=== PATIENT | female | born 1995 | race Caucasian/White ===

== ENCOUNTER 2024-06-12 11:31 | Emergency (ER) | payer OTHER ==
[~2024-06-12] VITALS: Ht 167.6 cm; Wt 73.9 kg
[2024-06-12 11:42] VITALS: BP 111/71; PULSE 73; RESP 16; TEMP 98.1; O2SAT 99
[2024-06-12 12:00] VITALS: O2SAT 98
[2024-06-12] MEDS: NACL 0.9% 1,000 ML IV ONE (13:19)
[2024-06-12 13:24] LABS: BASOPHILS % (AUTO) 0.6 % (0.0-2.0); EOSINOPHILS # (AUTO) 0.2 K/uL (0-0.4); EOSINOPHILS % (AUTO) 3.4 % (0.0-4.0); HEMATOCRIT 41.1 % (36-48); HEMOGLOBIN 13.9 g/dL (12.0-16.0); LYMPHOCYTES # (AUTO) 2.5 K/uL (2.5-16.5); LYMPHOCYTES % (AUTO) 37.3 % (20.5-51.1); MEAN CORPUSCULAR HEMOGLOBIN 29 pg (27-31); MEAN CORPUSCULAR HGB CONC 34 g/dL (33-37); MEAN CORPUSCULAR VOLUME 86.3 fL (80-94); MONOCYTES # (AUTO) 0.7 K/uL (0.8-1.0); MONOCYTES % (AUTO) 9.8 % (1.7-9.3); NEUTROPHILS # (AUTO) 3.3 K/uL (1.8-7.7); NEUTROPHILS % (AUTO) 48.9 % (42.2-75.2); PLATELET COUNT (AUTO) 345 K/uL (140-450); RED BLOOD CELL COUNT(AUTO) 4.76 MIL/uL (4.20-5.40); RED CELL DISTRIBUTION WIDTH 14.1 % (11.6-13.7); WHITE BLOOD COUNT (AUTO) 6.7 K/uL (4.8-10.8)
[2024-06-12 13:33] VITALS: BP 110/66; PULSE 74; RESP 14; TEMP 98.2; O2SAT 100
[2024-06-12] MEDS: diphenhydrAMINE 50 MG/ML VIAL IVP ONE (13:33)
[2024-06-12] MEDS: PROCHLORPERAZINE 10 MG/2 ML VIAL IVP ONE (13:34)
[2024-06-12] MEDS: KETOROLAC 30 MG/ML VIAL IVP ONE (13:35)
[2024-06-12 13:49] LABS: ANION GAP 9.6 (8-16); CALCIUM 8.4 mg/dL (8.5-10.1); CARBON DIOXIDE 31.4 mmol/L (21-32); CREATININE 0.7 mg/dL (0.6-1.3)
[2024-06-12] MEDS ORDERED: ACET-9234 PO (14:19)
== END 2024-06-12 14:26 | disposition home or self-care (01) ==
LOC: MED 11:31
DX: G43.909 Migraine, unspecified, not intractable, without status migrainosus (principal); Z79.899 Other long term (current) drug therapy
CPT/HCPCS: 36415; 80048; 81025; 84443; 85025; 96361; 96374; 96375; 99284; J0780; J1200; J1885; J7030